=== PATIENT | female | born 1985 | race Caucasian/White ===

== ENCOUNTER 2021-12-14 10:04 | Outpatient (REF) | payer OTHER, SELFPAY ==
--- NOTE | ~2021-12-14 | XR_ITS ---
EXAMINATION: XR SINUSES CLINICAL INFORMATION: Chronic sinus pressure COMPARISON: None TECHNIQUE: 3 views of the sinuses were obtained. FINDINGS: Paranasal sinuses appear clear without air-fluid levels. No fractures are identified. No radiodense foreign bodies. XR/XR sinus min 3V IMPRESSION: Unremarkable sinus examination.
== END 2021-12-14 10:05 | disposition home or self-care (01) ==
LOC: HO.XRAY 10:04
PROVIDERS: PCP Internal Medicine; Visit Provider Otolaryngology
DX: J32.9 Chronic sinusitis, unspecified (principal)
CPT/HCPCS: 70220

== ENCOUNTER 2022-02-18 07:24 | Outpatient (REF) | payer OTHER, SELFPAY ==
[2022-02-18 07:40] LABS: MANUAL DIFF FLAG NO
[2022-02-18 08:21] LABS: Basophils Percent Auto 0.4 % (0-2); Eosinophils Absolute Auto 0.2 X10*3/uL (0.0-0.4); Eosinophils Percent Auto 1.8 % (0-4); Hematocrit 39.3 % (37.0-47.0); Imm Gran Abs Auto 0.01 X10*3/uL (0.00-0.03); Imm Gran Pct Auto 0.1 % (0.0-0.4); Lymphocytes Percent Auto 24.8 % (20-40); Mean Corpuscular HGB Conc 33.1 g/dl (31.0-35.0); Mean Corpuscular Volume 84.5 fL (80.0-98.0); Mean Platelet Volume 9.9 fL (9.4-12.3); Monocytes Absolute Auto 0.8 X10*3/uL (0.1-1.2); Monocytes Percent Auto 10.1 % (2-11); Neutrophils Absolute Auto 5.1 x10*3/uL (2.0-8.3); Neutrophils Percent Auto 62.8 % (45-73); Platelet Count 350 X10*3/uL (160-400); Red Blood Count 4.65 X10*6/uL (4.20-5.50); Red Cell Distribution Width 13.5 % (11.0-16.0); White Blood Count 8.2 X10*3/uL (4.8-10.8)
[2022-02-18 08:32] LABS: Alanine Aminotransferase 12 U/L (0-31); Albumin Level 4.2 g/dL (3.5-5.0); Alkaline Phosphatase 53 U/L (39-117); Anion Gap 13 (12-20); Aspartate Amino Transferase 13 U/L (5-31); Bilirubin Total 0.3 mg/dL (0.0-1.0); Blood Urea Nitrogen 12 mg/dL (9-16); Carbon Dioxide 23 mmol/L (22-29); Chloride 108 mmol/L (96-108); Cholesterol 200 mg/dL; Estimated Glomerular Filt Rate > 60; Glucose Fasting 110 mg/dL (60-99); HDL Cholesterol 44 mg/dL; LDL Cholesterol Calculated 130 mg/dl; Potassium 4.4 mmol/L (3.3-5.1); Sodium 140 mmol/L (135-145); TSH reflex Free T4 1.22 uIU/mL (0.32-4.0); Total Protein 7.1 g/dL (6.5-8.0); Triglycerides 133 mg/dL; Vitamin D 25-OH Total 27.4 ng/mL (>30)
[2022-02-18 08:50] LABS: Folate > 20.0 ng/mL (> or = 4.0); Vitamin B12 736 pg/mL (200-900)
== END 2022-02-18 07:25 | disposition home or self-care (01) ==
LOC: HO.LAB 07:24
PROVIDERS: PCP Internal Medicine; Visit Provider Nurse Practitioner Family
DX: Z76.89 Persons encountering health services in other specified circumstances (principal)
CPT/HCPCS: 36415; 80053; 80061; 82306; 82607; 82746; 84443; 85025

== ENCOUNTER 2022-03-01 10:46 | Outpatient (REF) | payer OTHER, SELFPAY ==
[2022-03-01 12:15] LABS: Estimated Average Glucose 100 mg/dL; Hemoglobin A1c % 5.1 %
== END 2022-03-01 10:47 | disposition home or self-care (01) ==
LOC: HO.LAB 10:46
PROVIDERS: PCP Internal Medicine; Visit Provider Nurse Practitioner Family
DX: R73.01 Impaired fasting glucose (principal)
CPT/HCPCS: 36415; 83036

== ENCOUNTER 2022-06-12 09:11 | Outpatient (REF) | payer OTHER, SELFPAY ==
[2022-06-14 01:10] LABS: HPV mRNA E6/E7 rflx Not Detected (Not Detected)
== END 2022-06-12 09:12 | disposition home or self-care (01) ==
LOC: HO.LNP 09:11
PROVIDERS: PCP Internal Medicine; Visit Provider Advanced Practice Midwife
DX: Z01.419 Encounter for gynecological examination (general) (routine) without abnormal findings (principal); Z11.51 Encounter for screening for human papillomavirus (HPV)
CPT/HCPCS: 87624; 88142

== ENCOUNTER → 2022-09-05 14:32 | Outpatient (BNVA) | payer OTHER, SELFPAY | PROVIDERS: PCP Internal Medicine; Visit Provider Nurse Practitioner Family ==

== ENCOUNTER → 2022-10-12 07:00 | Outpatient (REF) | payer OTHER, SELFPAY | LOC: HO.SL 07:00 | PROVIDERS: PCP Internal Medicine; Visit Provider Nurse Practitioner Family | DX: G47.9 Sleep disorder, unspecified (principal); G47.19 Other hypersomnia; R06.83 Snoring | CPT/HCPCS: 95806 ==

== ENCOUNTER 2022-10-12 07:10 | Outpatient (REF) | payer OTHER, SELFPAY | END 2022-10-12 07:11 | disposition home or self-care (01) | LOC: HO.MRI 07:10 | PROVIDERS: PCP Internal Medicine; Visit Provider Nurse Practitioner Family | DX: G43.109 Migraine with aura, not intractable, without status migrainosus (principal); H91.90 Unspecified hearing loss, unspecified ear; J32.9 Chronic sinusitis, unspecified; R55 Syncope and collapse | CPT/HCPCS: 70553; A9585 ==

== ENCOUNTER → 2022-10-12 15:08 | Outpatient (BNV) | payer OTHER, SELFPAY | PROVIDERS: PCP Internal Medicine; Visit Provider Psychiatry & Neurology Neurology | DX: R06.83 Snoring (principal) | CPT/HCPCS: 95806 ==

== ENCOUNTER 2022-12-18 13:12 | Outpatient (AMB) | payer OTHER, SELFPAY ==
[2022-12-18 13:29] VITALS: BP 120/88; PULSE 90; O2SAT 99; BMI 32.0
--- NOTE | 2022-12-18 13:29 | A.OFFVIS_ITS ---
Intake Vital Signs 12/18/22 13:29 Height 5 ft 2 in Weight 175 lb BMI 32.0 BP 120/88 Blood Pressure Location Rt brachial Position Sitting Pulse 90 Pulse Source Pulse Oximeter Pulse Oximetry (%) 99 Oxygen Delivery Method Room Air Intake Visit Reasons: Migraines Intake Note: Patient presents for migraines. patient states I haven't had as many migraines, But i do get headaches. Allergies Seasonal Allergies Allergy (Intermediate, Verified 12/18/22 13:33) Itching Medication List - Last Reconciled 12/18/22 by KARY Delatorre cholecalciferol (vitamin D3) 25 mcg PO DAILY loratadine-pseudoephedrine 10-240 mg ER (Claritin-D 24 Hour) 1 tab PO DAILY magnesium oxide 400 mg PO BEDTIME 30 days multivitamin 1 tab PO DAILY riboflavin (vitamin B2) 400 mg PO DAILY 30 days sumatriptan succinate 50 - 100 mg orally at onset of headache, may repeat in 2 hrs PRN; max 2 tabs per day or 4 tabs/week (may take with Ibuprofen) 30 days HPI HPI Comments History of Present Illness Details 37-yr-old female presents for f/u visit. Pt denies any significant interval medical changes. Pt reports that she has not had as many actual migraines since the last few months- 4-5 in the last 4 months. She has had more mild-mod sinus type headaches- especially triggered by weather changes. She is taking B2 and Mag- seems She has not tried the Sumatriptan yet- has not had a more bothersome headache when at home. Pt continues to have excessive daytime sleepiness. Brain MRI was normal. HST was inconclusive w/ AHI 0.2/hr and O2 zaria 84%. REPLACED BY [facility] Medical History (Updated 09/05/22 @ 21:35 by KARY Delatorre) Syncope Chronic sinusitis Hearing loss Snoring Sleep disorder Surgical History History of appendectomy Family History Mother Arthritis Osteoporosis Father Bladder cancer Myocardial infarction Social History Housing: House Alcohol intake: never Patient Tobacco Use Status: Never used Tobacco service: No Current occupational status: employed Cognitive needs: No Hearing needs: No Vision needs: Yes Female Reproductive History Menstrual Age of Menarche: 12 Review of Systems Const All systems reviewed & are unremarkable except as noted in HPI and below Physical Exam Vital Signs: Last Vital Signs Pulse 90 12/18/22 13:29 BP 120/88 12/18/22 13:29 Pulse Ox 99 12/18/22 13:29 Oxygen Delivery Method Room Air 12/18/22 13:29 BMI result Body Mass Index 32.0 Const General: cooperative and no acute distress Orientation/consciousness: patient oriented x3 HEENT Head: Yes normocephalic Resp Effort & Inspection: normal respiratory effort and able to speak in complete sentences Neuro General: patient oriented x3, gait normal and CN's II-XI intact bilaterally Cognition (Neuro): normal cognition Motor exam (neuro): 5/5 motor strength present throughout Psych Appearance: grossly normal Mental Status: mental status grossly normal Speech and movement: Normal speech and movement present Affect: normal affect Attitude: cooperative Thought process: Normal thought process present Thought content: Normal thought content present Insight: Good insight present (Psych) Judgement: Good judgement present (Psych) Assessment & Plan Assessment & Plan (1) Migraine with aura: Code(s): G43.109 - Migraine with aura, not intractable, without status migrainosus (2) Excessive daytime sleepiness: Code(s): G47.19 - Other hypersomnia (3) Sleep disorder: Code(s): G47.9 - Sleep disorder, unspecified (4) Snoring: Code(s): R06.83 - Snoring Plan Reviewed HST- inconclusive. Pt advised to undergo PSG/MSLT- to assess for hypersomnia/narcolepsy. Reviewed brain MRI w/wo- normal ? For acute headache treatment: Again trial Sumatriptan 100mg tab, 1/2 - 1 tab (50-100mg) at onset of headache, may repeat in 2 hours. Max of 2 tabs (200mg) per 24 hours. May adjunct with OTC Tylenol 650mg q 4 hours, Ibuprofen 600mg q 6 hours, or Naproxen 440mg q 12 hrs prn. May try Sumatriptan for sinus headaches as well. Previous acute migraine medication trials: OTC analgesics Acute migraine medication contraindications: None at this time ? For headache prevention medication: Continue Riboflavin 400mg qam Continue Magnesium 400mg qhs Previous migraine prevention medication trials: None Migraine prevention medication contraindications: None at this time ? Pt to follow-up in 3-4 months or sooner prn. Orders: Orders RT sleep testing - MSLT Today G47.19 - Other hypersomnia, G47.9 - Sleep disorder, unspecified, R06.83 - Snoring Coding Level of Care Code Est Pt Level 4 (51856) Diagnoses Migraine with aura G43.109 Excessive daytime sleepiness G47.19 Sleep disorder G47.9 Snoring R06.83
== END 2022-12-18 14:06 | disposition home or self-care (01) ==
PROVIDERS: Visit Provider Nurse Practitioner Family
DX: G43.109 Migraine with aura, not intractable, without status migrainosus (principal); G47.19 Other hypersomnia; G47.9 Sleep disorder, unspecified; R06.83 Snoring
CPT/HCPCS: 99214

== ENCOUNTER → 2022-12-18 13:12 | Outpatient (BNVA) | payer OTHER, SELFPAY | PROVIDERS: Visit Provider Nurse Practitioner Family ==

== ENCOUNTER 2023-02-23 15:44 | Outpatient (AMB) | payer OTHER, SELFPAY ==
[2023-02-23 15:45] VITALS: BP 108/70; PULSE 105; O2SAT 98; BMI 31.1
--- NOTE | 2023-02-23 15:45 | MHC.PC.OV ---
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 Allergies Seasonal Allergies Allergy (Intermediate, Verified 02/23/23 16:07) Itching Medication List - Last Reconciled 02/23/23 by KARY Sanchez cholecalciferol (vitamin D3) 25 mcg PO DAILY loratadine-pseudoephedrine 10-240 mg ER (Claritin-D 24 Hour) 1 tab PO DAILY magnesium oxide 400 mg PO BEDTIME 30 days multivitamin 1 tab PO DAILY riboflavin (vitamin B2) 400 mg PO DAILY 30 days sumatriptan succinate 50 - 100 mg orally at onset of headache, may repeat in 2 hrs PRN; max 2 tabs per day or 4 tabs/week (may take with Ibuprofen) 30 days Tobacco use date assessed: 02/23/23 Dental Screening Dental Screen Date: 02/23/23 Did you have a dental visit in the last 12 months?: No Did you have a dental problem in the last 6 months where you did not have access to dental care?: No Was dental information given to patient?: Patient has dentist HPI physical HPI Details Patient is a 37-year-old female who presents today for physical exam. Medical history significant for seasonal allergies-followed by Dr. Beckford-receiving injections, obesity, elevated fasting glucose, migraine with aura-followed by [place] [facility]. Today we discussed patient's need for tetanus vaccine. Pap smear normal 06/2022 with [place] [facility]. Patient denies concerns. [facility] Medical History Encounter to establish care Syncope Chronic sinusitis Hearing loss Snoring Sleep disorder Surgical History History of appendectomy Family History Mother Arthritis Osteoporosis Father Bladder cancer Myocardial infarction Social History Housing: House Alcohol intake: never Patient Tobacco Use Status: Never used Tobacco service: No Current occupational status: employed Cognitive needs: No Hearing needs: No Vision needs: Yes Female Reproductive History Menstrual Age of Menarche: 12 Questionnaire PHQ-9 Over the last 2 weeks, how often have you been bothered by any of the following problems? 1. Little interest or pleasure in doing things: not at all 2. Feeling down, depressed, or hopeless: not at all 3. Trouble falling or staying asleep, or sleeping too much: not at all 4. Feeling tired or having little energy: not at all 5. Poor appetite or overeating: not at all 6. Feeling bad about yourself - or that you are a failure or have let yourself or your family down: not at all 7. Trouble concentrating on things, such as reading the newspaper or watching television: not at all 8. Moving or speaking so slowly that other people could have noticed. Or the opposite - being so fidgety or restless that you have been moving around a lot more than usual: not at all 9. Thoughts that you would be better off or of hurting yourself in some way: not at all Total score: 0 Depression Screening Interpretation: Negative Depression Screening Done: Yes 51281 - PHQ-9 Billing: Yes Source: Developed by Drs. Gian Downs, Michelle Griggs, Jalen Taylor and colleagues, with an educational mark from [employer]. Thrive Questionnaire Date Thrive assessed: 02/23/23 I am a: Patient What is your living situation today?: I have a steady place to live Within the past 12 months, did the food you bought not last and you didn't have the money to get more?: Never true Within the past 12 months, did you worry whether your food would run out before you got money to buy more?: Never true Do you have trouble paying for medicines?: No Do you have trouble getting transportation to medical appointments?: No Do you have trouble paying your heating and electricity bill?: No Do you have trouble taking care of your child, family member or friend?: No Do you have trouble with day-to-day activities such as bathing, preparing meals, shopping, managing finances, etc.?: No Are you currently unemployed and looking for a job?: No Are you interested in more education?: No Currently or been in a relationship where the following occur: no concerns reported AUDIT C Alcohol Use Questionnaire (AUDIT-C) 1. How often do you have a drink containing alcohol?: Never 2. How many drinks containing alcohol do you have on a typical day when you are drinking?: 1 or 2 (0) 3. How often do you have six or more drinks on one occasion?: Never Total Score: 0 Score Reviewed/Action Taken: No KATERINA-7 AMB Questionnaire KATERINA-7 Date KATERINA - 7 assessed: 02/23/23 Feeling nervous, anxious, or on edge: 0 = Not at all Not being able to stop or control worryin = Not at all Worrying too much about different things: 0 = Not at all Trouble relaxin = Not at all Being so restless that it is hard to sit still: 0 = Not at all Becoming easily annoyed or irritable: 0 = Not at all Feeling afraid as if something awful might happen: 0 = Not at all Total KATERINA-7 score (0-4 normal; 5-9 mild; 10-14 moderate; 15-21 severe): 0 Source: Developed by Drs. Gian Downs, Michelle Griggs, Jalen Taylor and colleagues, with an educational mark from [employer]. KATERINA-7 Assessment Billing KATERINA-7 Assessment Tool: KATERINA-7 Assessment 72199 Review of Systems Const Denies body aches, Denies chills, Denies fever(s) and Reports headache(s) (Intermittent) Eyes Denies change in vision ENT Denies dizziness, Denies otalgia, Reports headache(s) (Intermittent), Denies nasal discharge, Denies sinus pain and Denies sore throat Card Denies chest pain, Denies edema, Denies lightheadedness and Denies dyspnea Resp Denies cough, Denies dyspnea and Denies wheezing GI Denies abdominal pain, Denies constipation, Denies diarrhea, Denies nausea and Denies vomiting Denies dysuria Musc Denies myalgias Skin/Breast Denies rash Neuro Denies dizziness and Reports headache(s) (Intermittent) Aller/Immun Denies wheezing Physical exam (Primary Care) Vital Signs: Last Vital Signs Pulse 94 02/23/23 16:17 BP 108/70 02/23/23 15:45 Pulse Ox 98 11/17/23 15:45 Oxygen Delivery Method Room Air 02/23/23 15:45 BMI result Body Mass Index 31.1 Tobacco/Smoking Status: Tobacco use Status Tobacco use date assessed 02/23/23 02/23/23 15:46 Patient Tobacco Use Status Never used Tobacco 02/23/23 15:46 PHQ-9: PHQ-9 Score PHQ-9: Total score 0 02/23/23 16:23 Depression Screening Interpretation: Negative Thrive Assessment: Date of Thrive Assessment Date Thrive assessed 02/23/23 02/23/23 15:46 Currently or been in a relationship where the following occur: no concerns reported Const General: cooperative and no acute distress Orientation/consciousness: patient oriented x3 HENMT Head: Yes normocephalic and Yes atraumatic Ears: TM's normal bilaterally Face and sinus: Yes sinuses nontender Mouth: oropharynx normal and moist mucous membranes Throat: Yes posterior oropharynx normal Eyes General: appearance normal, both eyes and all related structures Pupils: Equal, round and reactive pupils present EOM: EOMs intact bilaterally Neck Neck: Yes normal visual inspection, Yes full ROM and Yes no lymphadenopathy Thyroid: Thyroid normal Resp Effort & Inspection: normal respiratory effort and able to speak in complete sentences Auscultation: clear to auscultation bilaterally, no crackles, no rales, no rhonchi and no wheezes Cardio Rate: regular rate Rhythm: regular rhythm Heart sounds: S1 normal heart sound present, S2 normal heart sound present and no murmurs GI Palpation (GI): Soft to palpation, not firm, nontender, no guarding, not rigid and no hepatosplenomegaly Auscultation: normal bowel sounds General: No CVA tenderness Back/Spine/Pelvis Back: No CVA tenderness Skin General skin exam: no rashes or lesions noted Neuro General: patient oriented x3 Cranial nerves: Yes Equal, round and reactive pupils present Gait exam (Neuro): Normal gait present Extrem General: Yes full ROM and No edema Immunizations Boostrix Tdap 2.5 Lf unit-8 mcg-5 Lf/0.5 mL intramuscular syringe Performing Provider: KARY Sanchez Performing Location: [facility] [place] [facility] Administered by: ALESSANDRO Jewell on 02/23/23 16:23 Dose Route Admin Location Dispensed Lot Number Expiration Date NDC Cell Preparer 0.5 mL IM Left Deltoid 0.5 mL [id number] 05/08/25 [id number] [facility] [facility] VIS Given Date VIS Provided VIS Publication Date 02/23/23 Single Vaccine 20 Eligibility Eligibility Date Funding Source Not VFC Eligible 02/23/23 Private Assessment and Plan Assessment & Plan (1) Seasonal allergies: Code(s): J30.2 - Other seasonal allergic rhinitis Plan: Continue to follow-up with Dr. Beckford - patient has been receiving allergy shots (2) Obesity (BMI 30-39.9): Code(s): E66.9 - Obesity, unspecified Plan: Healthy food choices and exercise as tolerated (3) Adult general medical exam: Code(s): Z00.00 - Encounter for general adult medical examination without abnormal findings (4) Migraine with aura: Code(s): G43.109 - Migraine with aura, not intractable, without status migrainosus Plan: Stable with current treatment as prescribed by Neurology (5) Elevated fasting glucose: Code(s): R73.01 - Impaired fasting glucose Plan: A1c ordered Orders: Orders TSH reflex Free T4 Today G43.109 - Migraine with aura, not intractable, without status migrainosus Lipid Panel Today G43.109 - Migraine with aura, not intractable, without status migrainosus Comprehensive [place]. Panel Fast Today G43.109 - Migraine with aura, not intractable, without status migrainosus Complete Blood Count Auto Diff Today G43.109 - Migraine with aura, not intractable, without status migrainosus TDaP Immunization 02/23/23 Z23 - Encounter for immunization Vitamin D 25-OH Total Today G43.109 - Migraine with aura, not intractable, without status migrainosus Hemoglobin A1c Today R73.01 - Impaired fasting glucose Coding Level of Care Code Est Pt Prev Care 18-39y(33981) Diagnoses Seasonal allergies J30.2 Obesity (BMI 30-39.9) E66.9 Adult general medical exam Z00.00 Migraine with aura G43.109 Elevated fasting glucose R73.01 Additional Codes KATERINA-7 Assessment Billing - KATERINA-7 Assessment Tool: KATERINA-7 Assessment [id number] ([id number])
[2023-02-23 16:17] VITALS: PULSE 94
== END 2023-02-23 16:24 | disposition home or self-care (01) ==
PROVIDERS: Visit Provider Nurse Practitioner Family
DX: Z23 Encounter for immunization (principal)
CPT/HCPCS: 90471; 90715; 99395

== ENCOUNTER 2023-02-24 07:28 | Outpatient (REF) | payer OTHER, SELFPAY ==
[2023-02-24 07:43] LABS: MANUAL DIFF FLAG NO
[2023-02-24 08:24] LABS: Basophils Percent Auto 0.3 % (0-2); Eosinophils Absolute Auto 0.1 X10*3/uL (0.0-0.4); Eosinophils Percent Auto 1.1 % (0-4); Hemoglobin 12.8 g/dl (12.0-16.0); Imm Gran Abs Auto 0.03 X10*3/uL (0.00-0.03); Imm Gran Pct Auto 0.3 % (0.0-0.4); Lymphocytes Absolute Auto 2.1 X10*3/uL (1.2-4.9); Lymphocytes Percent Auto 23.1 % (20-40); Mean Corpuscular HGB Conc 32.8 g/dl (31.0-35.0); Mean Corpuscular Hemoglobin 27.4 pg (27.0-33.0); Mean Corpuscular Volume 83.3 fL (80.0-98.0); Mean Platelet Volume 9.8 fL (9.4-12.3); Monocytes Absolute Auto 0.9 X10*3/uL (0.1-1.2); Neutrophils Absolute Auto 5.9 x10*3/uL (2.0-8.3); Neutrophils Percent Auto 65.2 % (45-73); Platelet Count 338 X10*3/uL (160-400); Red Blood Count 4.68 X10*6/uL (4.20-5.50); Red Cell Distribution Width 13.5 % (11.0-16.0); White Blood Count 9.1 X10*3/uL (4.8-10.8)
[2023-02-24 08:38] LABS: Estimated Average Glucose 100 mg/dL; Hemoglobin A1c % 5.1 % (<6.0)
[2023-02-24 08:57] LABS: Alanine Aminotransferase 10 U/L (0-31); Albumin Level 4.3 g/dL (3.5-5.0); Alkaline Phosphatase 48 U/L (39-117); Anion Gap 12 (12-20); Aspartate Amino Transferase 11 U/L (5-31); Bilirubin Total 0.4 mg/dL (0.0-1.0); Blood Urea Nitrogen 11 mg/dL (9-16); Calcium 9.3 mg/dL (8.4-10.2); Carbon Dioxide 23 mmol/L (22-29); Chloride 107 mmol/L (96-108); Cholesterol 208 mg/dL (<200); Estimated Glomerular Filt Rate > 60; Glucose Fasting 101 mg/dL (60-99); HDL Cholesterol 47 mg/dL (>40); LDL Cholesterol Calculated 137 mg/dL (<100); Potassium 4.2 mmol/L (3.3-5.1); Sodium 138 mmol/L (135-145); Total Protein 7.5 g/dL (6.5-8.0); Triglycerides 123 mg/dL (<150)
[2023-02-24 09:16] LABS: TSH reflex Free T4 0.45 uIU/mL (0.32-4.0); Vitamin D 25-OH Total 38.3 ng/mL (>30)
== END 2023-02-24 07:29 | disposition home or self-care (01) ==
LOC: HO.LAB 07:28
PROVIDERS: PCP Internal Medicine; Visit Provider Nurse Practitioner Family
DX: G43.109 Migraine with aura, not intractable, without status migrainosus (principal); R73.01 Impaired fasting glucose; E55.9 Vitamin D deficiency, unspecified
CPT/HCPCS: 36415; 80053; 80061; 82306; 83036; 84443; 85025

== ENCOUNTER 2023-05-14 14:25 | Outpatient (AMB) | payer OTHER, SELFPAY ==
--- NOTE | 2023-05-14 14:28 | MHC.OFFVIS ---
Intake Vital Signs 05/14/23 14:30 Height 5 ft 4 in Weight 174 lb BMI 29.9 BP 108/90 H Blood Pressure Location Rt brachial Position Sitting Pulse 92 Pulse Source Pulse Oximeter Pulse Oximetry (%) 98 Oxygen Delivery Method Room Air Intake Visit Reasons: Migraines-Confirmed Intake Note: Patient presents for migraines. my headaches are probably a little less and not quite as many. Allergies Seasonal Allergies Allergy (Intermediate, Verified 05/14/23 14:31) Itching HPI HPI Comments History of Present Illness Details 38-yr-old female presents for f/u visit. Pt denies any significant interval medical changes. 03/16/23: In-lab PSG results- did not show sleep apnea: AHI 2/hr, average SpO2 93% w/ O2 zaria 89%, sleep efficiency 82%, REM sleep latency 216 min, PLMS 24/hr, PLMS arousal index 9/hr. MSLT results were c/w hypersomnia- average nap onset time 5 min, but no REM activity. 02/2022 Vit B12- 736, Folate- > 20 02/2023 TSH 0.38 02/2023 H&H 12.8 & 39 02/2023 HgA1C 5.1% Describes her daytime sleepiness, as feeling tired. She is prone to unintentionally falling asleep on the couch in the evening at home. Does not fall asleep at work. She has never fallen asleep w/ driving. Sleeps approx 6-7 hrs per night. Headaches are a little bit better. Now mild headache or sinus/allergy headache 2-3 x's per week- tends to be at the end of the work day. Works in finance- on computer all day- not using blue light filtering devices. Has been compliant w/ B2 and Mag. Has not yet tried Sumatriptan- Baseline headache characteristics: Aura: Starts with not seeing right, poor focus- like double vision but not, f/b seeing little squiggles. This lasts 20 min, and may or may not be f/ a headache, but usually f/b being more tired. Usually mild-mod, rarely severe Holocranial (may start as frontal facial pressure) or sometime the headaches start in the back of the head and moves up. a/w photophobia, allodynia, nausea, mild brain fog, tiredness, PFSH Medical History Encounter to establish care Syncope Chronic sinusitis Hearing loss Snoring Sleep disorder Surgical History History of appendectomy Family History Mother Arthritis Osteoporosis Father Bladder cancer Myocardial infarction Social History Housing: House Alcohol intake: never Patient Tobacco Use Status: Never used Tobacco service: No Current occupational status: employed Cognitive needs: No Hearing needs: No Vision needs: Yes Female Reproductive History Menstrual Age of Menarche: 12 Physical Exam Vital Signs: Last Vital Signs Pulse 92 05/14/23 14:30 BP 108/90 H 05/14/23 14:30 Pulse Ox 98 05/14/23 14:30 Oxygen Delivery Method Room Air 05/14/23 14:30 BMI result Body Mass Index 29.9 Const General: cooperative and no acute distress Orientation/consciousness: patient oriented x3 Resp Effort & Inspection: normal respiratory effort and able to speak in complete sentences Neuro General: patient oriented x3 Cranial nerves: Yes CN's II-XII intact bilaterally Cognition (Neuro): normal cognition Psych Appearance: grossly normal Mental Status: mental status grossly normal Speech and movement: Normal speech and movement present Affect: normal affect Attitude: cooperative Assessment & Plan Assessment & Plan (1) Migraine with aura: Code(s): G43.109 - Migraine with aura, not intractable, without status migrainosus (2) Hypersomnia: Code(s): G47.10 - Hypersomnia, unspecified (3) Periodic limb movements of sleep: Code(s): G47.61 - Periodic limb movement disorder (4) Ocular migraine: Code(s): G43.109 - Migraine with aura, not intractable, without status migrainosus Plan Reviewed PSG/MSLT- no evidence for sleep apnea, there was a PLMS arousal index of 9/hr, MSLT resulted in average nap onset time 5 min, but no REM activity. Recent CBC, CMP, HgA1C, B-12, Folate, TSH- WNL. Encourgaed pt to increase nocturnal sleep time, try to avoid evening naps. Sleep hygiene, CBTi resources shared w/ pt. Future considerations- gabapentin or dopamine agonist for PLMS, or stimulnat agent- such as modafinil. For acute headache treatment: Sumatriptan 100mg tab, 1/2 - 1 tab (50-100mg) at onset of headache, may repeat in 2 hours. Max of 2 tabs (200mg) per 24 hours. May adjunct with OTC Tylenol 650mg q 4 hours, Ibuprofen 600mg q 6 hours, or Naproxen 440mg q 12 hrs prn. May try Sumatriptan for sinus headaches as well. Previous acute migraine medication trials: OTC analgesics Acute migraine medication contraindications: None at this time ? For headache prevention medication: Try using blue light filtering devices while at work. Continue Riboflavin 400mg qam Continue Magnesium 400mg qhs Previous migraine prevention medication trials: None Migraine prevention medication contraindications: None at this time ? Pt to follow-up in 6 months or sooner prn. Coding Level of Care Code Est Pt Level 4 (59669) Diagnoses Migraine with aura G43.109 Hypersomnia G47.10 Periodic limb movements of sleep G47.61 Ocular migraine G43.109
[2023-05-14 14:30] VITALS: BP 108/90; PULSE 92; O2SAT 98; BMI 29.9
== END 2023-05-14 15:10 | disposition home or self-care (01) ==
PROVIDERS: PCP Internal Medicine; Visit Provider Nurse Practitioner Family
DX: G43.109 Migraine with aura, not intractable, without status migrainosus (principal); G47.10 Hypersomnia, unspecified; G47.61 Periodic limb movement disorder
CPT/HCPCS: 99214

== ENCOUNTER → 2023-05-14 14:25 | Outpatient (BNVA) | payer OTHER, SELFPAY | PROVIDERS: PCP Internal Medicine; Visit Provider Nurse Practitioner Family ==

== ENCOUNTER 2023-12-31 09:25 | Outpatient (AMB) | payer BC, SELFPAY ==
[2023-12-31 09:47] VITALS: BP 122/84; BMI 30.4
--- NOTE | 2023-12-31 09:47 | MHC.OFFVIS ---
Vital Signs 12/31/23 09:47 Height 5 ft 4 in Weight 177 lb BMI 30.4 BP 122/84 Blood Pressure Location Rt brachial Position Sitting Intake Visit Reasons: Migraines-Confirme Intake Note: Patient presents for follow up migraines. Allergies Seasonal Allergies Allergy (Intermediate, Verified 12/31/23 09:48) Itching Medication List - Last Reconciled 12/31/23 by KARY Delatorre cholecalciferol (vitamin D3) 25 mcg PO DAILY gabapentin 100 - 300 mg (1 - 3 x 100 mg) PO BEDTIME 30 days loratadine-pseudoephedrine 10-240 mg ER (Claritin-D 24 Hour) 1 tab PO DAILY magnesium oxide 400 mg PO BEDTIME 30 days multivitamin 1 tab PO DAILY riboflavin (vitamin B2) 400 mg PO DAILY 30 days sumatriptan succinate 50 - 100 mg orally at onset of headache, may repeat in 2 hrs PRN; max 2 tabs per day or 4 tabs/week (may take with Ibuprofen) 30 days HPI Comments Details: 38-yr-old female presents for f/u visit. Pt denies any significant interval medical changes. Pt states she is overall stable. Pt notes she is still working on optimizing her evening and sleep routine. Currently taking classes in [employer]. After work, she eats dinner and may take a short break, then does school work, house work, exercise until 11pm. She is trying to avoid sitting on the couch after her evening routine- which can end at ~11pm, as she will fall asleep on the couch. She is trying to be better about taking evening meds as well- such as Gabapentin. Describes her daytime sleepiness, as feeling tired. She is still prone to unintentionally falling asleep when inactive but typically only when in a comfortable space such as home. Does not fall asleep at work. She has never fallen asleep w/ driving. Sleeps approx 6-7 hrs per night. Headaches are a little bit better. Now mild headache or sinus/allergy headache 2-3 x's per week- tends to be at the end of the work day. Having 1-2 migarine attacks per month. Works in finance- on computer all day- not using blue light filtering devices. Has been compliant w/ B2 and Mag. Has not yet tried Sumatriptan. Baseline headache characteristics: Aura: Starts with not seeing right, poor focus- like double vision but not, f/b seeing little squiggles. This lasts 20 min, and may or may not be f/ a headache, but usually f/b being more tired. Usually mild-mod, rarely severe Holocranial (may start as frontal facial pressure) or sometime the headaches start in the back of the head and moves up. a/w photophobia, allodynia, nausea, mild brain fog, tiredness, 03/16/23:In-lab PSG results- did not show sleep apnea: AHI 2/hr, average SpO2 93% w/ O2 zaria 89%, sleep efficiency 82%, REM sleep latency 216 min, PLMS 24/hr, PLMS arousal index 9/hr. MSLT results were c/w hypersomnia- average nap onset time 5 min, but no REM activity. 02/2022 Vit B12- 736, Folate- > 20 02/2023 TSH 0.38 02/2023 H&H 12.8 & 39 02/2023 HgA1C 5.1% PFSH Medical History Encounter to establish care Syncope Chronic sinusitis Hearing loss Snoring Sleep disorder Surgical History History of appendectomy Family History Mother Arthritis Osteoporosis Father Bladder cancer Myocardial infarction Social History Housing: House Alcohol intake: never Patient Tobacco Use Status: Never used Tobacco service: No Current occupational status: employed Cognitive needs: No Hearing needs: No Vision needs: Yes Female Reproductive History Menstrual Age of Menarche: 12 Physical Exam Vital Signs: Last Vital Signs BP 122/84 12/31/23 09:47 BMI result Body Mass Index 30.4 Const General: cooperative and no acute distress Orientation/consciousness: patient oriented x3 Resp Effort & Inspection: normal respiratory effort and able to speak in complete sentences Neuro General: patient oriented x3 Cranial nerves: Yes CN's II-XII intact bilaterally Cognition (Neuro): normal cognition Psych Appearance: grossly normal Mental Status: mental status grossly normal Speech and movement: Normal speech and movement present Affect: normal affect Attitude: cooperative Assessment & Plan Assessment & Plan (1) Hypersomnia: Code(s): G47.10 - Hypersomnia, unspecified Category: Medical (2) Periodic limb movements of sleep: Code(s): G47.61 - Periodic limb movement disorder Category: Medical (3) Migraine with aura: Code(s): G43.109 - Migraine with aura, not intractable, without status migrainosus Category: Medical Plan Gabapentin 100-300mg qhs for PLMS. Encouraged pt to increase nocturnal sleep time, try to avoid evening naps. Sleep hygiene strategies/tips shared w/ pt- ie setting bedtime reminder in phone. Future considerations- Stimulant agent- such as modafinil. ? For acute headache treatment: Again may try Sumatriptan 100mg tab, 1/2 - 1 tab (50-100mg) at onset of headache, may repeat in 2 hours. Max of 2 tabs (200mg) per 24 hours. May adjunct with OTC Tylenol 650mg q 4 hours, Ibuprofen 600mg q 6 hours, or Naproxen 440mg q 12 hrs prn. May try Sumatriptan for sinus headaches as well. Previous acute migraine medication trials: OTC analgesics Acute migraine medication contraindications: None at this time ? For headache prevention medication: Try using blue light filtering devices while at work. Continue Riboflavin 400mg qam Continue Magnesium 400mg qhs Previous migraine prevention medication trials: None Migraine prevention medication contraindications: None at this time ? Pt to follow-up in 12 months or sooner prn. Medications: Refilled sumatriptan succinate (0.5 - 1 x 100 mg) 50 - 100 mg orally at onset of headache, may repeat in 2 hrs PRN; max 2 tabs per day or 4 tabs/week (may take with Ibuprofen) 30 days 12 tabs 1RF migraine headache Coding Level of Care Code Est Pt Level 4 (10195) Diagnoses Hypersomnia G47.10 Periodic limb movements of sleep G47.61 Migraine with aura G43.109
== END 2023-12-31 10:47 | disposition home or self-care (01) ==
PROVIDERS: PCP Internal Medicine; Visit Provider Nurse Practitioner Family
DX: G47.10 Hypersomnia, unspecified (principal); G47.61 Periodic limb movement disorder; G43.109 Migraine with aura, not intractable, without status migrainosus
CPT/HCPCS: 99214

== ENCOUNTER → 2023-12-31 09:25 | Outpatient (BNVA) | payer BC, SELFPAY | PROVIDERS: PCP Internal Medicine; Visit Provider Nurse Practitioner Family ==

== ENCOUNTER 2024-02-28 17:16 | Outpatient (AMB) | payer BC, SELFPAY ==
--- NOTE | 2024-02-28 17:18 | MHC.PC.OV ---
Vital Signs 02/28/24 17:19 Height 5 ft 4 in Weight 176 lb BMI 30.2 BP 112/80 Blood Pressure Location Lt brachial Position Sitting Intake Visit Reasons: PE Intake Note: Patient here for a physical exam Crime Victim Specialist Required: No Accompanied by: Self / Same As Patient Allergies Seasonal Allergies Allergy (Intermediate, Verified 02/28/24 17:35) Itching Medication List - Last Reconciled 02/28/24 by Bette Herndon MD gabapentin 100 - 300 mg (1 - 3 x 100 mg) PO BEDTIME 30 days loratadine-pseudoephedrine 10-240 mg ER (Claritin-D 24 Hour) 1 tab PO DAILY magnesium oxide 400 mg PO BEDTIME 30 days multivitamin 1 tab PO DAILY sumatriptan succinate 50 - 100 mg orally at onset of headache, may repeat in 2 hrs PRN; max 2 tabs per day or 4 tabs/week (may take with Ibuprofen) 30 days Tobacco use date assessed: 02/28/24 Dental Screening Dental Screen Date: 02/28/24 Did you have a dental visit in the last 12 months?: Yes Did you have a dental problem in the last 6 months where you did not have access to dental care?: No Was dental information given to patient?: Patient has dentist HPI HPI Comments History of Present Illness Details The patient is a 38-year-old female presenting with an annual physical examination. The patient has a history of seasonal allergic rhinitis for which she receives weekly allergy shots under the care of Dr. Chapman. She also takes loratadine with pseudoephedrine as needed for her allergies. She has a history of restless legs syndrome, diagnosed after a sleep study conducted in March 2022, for which gabapentin was prescribed by her neurologist. Additionally, the patient has been experiencing migraines, which prompted her initial referral to the neurologist. She reports that magnesium supplementation has helped reduce the frequency of her migraines. She uses sumatriptan as needed for acute migraine attacks. The patient's cholesterol levels were found to be slightly elevated during her last blood work, but did not warrant pharmacological intervention. Weight was noted to have a BMI of 30, categorizing her under class 1 obesity. - Pap smear was performed in 2022 - Received Tdap vaccine in 2022 - Received the influenza vaccine a couple of weeks prior to the visit [facility], [facility] Medical History Encounter to establish care Syncope Chronic sinusitis Hearing loss Snoring Sleep disorder Surgical History History of appendectomy Family History Mother Arthritis Osteoporosis Father Bladder cancer Myocardial infarction Social History (Updated 02/28/24 @ 17:40 by Bette Herndon MD) Housing: House Alcohol intake: current Alcohol intake frequency: holidays/special occasions only Patient Tobacco Use Status: Never used Tobacco e-Cigarette/Vaping Use: Never Used Second Hand Smoke Exposure: No service: No Current occupational status: employed Cognitive needs: No Hearing needs: No Vision needs: Yes Female Reproductive History Menstrual Age of Menarche: 12 Questionnaire PHQ-9 Over the last 2 weeks, how often have you been bothered by any of the following problems? 1. Little interest or pleasure in doing things: not at all 2. Feeling down, depressed, or hopeless: not at all 3. Trouble falling or staying asleep, or sleeping too much: not at all 4. Feeling tired or having little energy: several days 5. Poor appetite or overeating: several days 6. Feeling bad about yourself - or that you are a failure or have let yourself or your family down: not at all 7. Trouble concentrating on things, such as reading the newspaper or watching television: not at all 8. Moving or speaking so slowly that other people could have noticed. Or the opposite - being so fidgety or restless that you have been moving around a lot more than usual: not at all 9. Thoughts that you would be better off or of hurting yourself in some way: not at all Total score: 2 Depression Screening Interpretation: Negative Depression Screening Done: Yes 30780 - PHQ-9 Billing: Yes Source: Developed by Drs. Gian Downs, Michelle Griggs, Jalen Taylor and colleagues, with an educational mark from [employer]. Thrive Questionnaire Date Thrive assessed: 02/28/24 I am a: Patient What is your living situation today?: I have a steady place to live Within the past 12 months, did the food you bought not last and you didn't have the money to get more?: Never true Within the past 12 months, did you worry whether your food would run out before you got money to buy more?: Never true Do you have trouble paying for medicines?: No Do you have trouble getting transportation to medical appointments?: No Do you have trouble paying your heating and electricity bill?: No Do you have trouble taking care of your child, family member or friend?: No Do you have trouble with day-to-day activities such as bathing, preparing meals, shopping, managing finances, etc.?: No Are you currently unemployed and looking for a job?: No Are you interested in more education?: No Please select the resources that you would like help with: None Currently or been in a relationship where the following occur: No concerns reported THRIVE Score: 0 AUDIT C Alcohol Use Questionnaire (AUDIT-C) 1. How often do you have a drink containing alcohol?: Monthly or less 2. How many drinks containing alcohol do you have on a typical day when you are drinking?: 1 or 2 3. How often do you have six or more drinks on one occasion?: Never Total Score: 1 Score Reviewed/Action Taken: No KATERINA-7 AMB Questionnaire KATERINA-7 Date KATERINA - 7 assessed: 02/28/24 Feeling nervous, anxious, or on edge: 0 = Not at all Not being able to stop or control worryin = Not at all Worrying too much about different things: 0 = Not at all Trouble relaxin = Not at all Being so restless that it is hard to sit still: 0 = Not at all Becoming easily annoyed or irritable: 0 = Not at all Feeling afraid as if something awful might happen: 0 = Not at all Total KATERINA-7 score (0-4 normal; 5-9 mild; 10-14 moderate; 15-21 severe): 0 Source: Developed by Drs. Gian Downs, Michelle Griggs, Jalen Taylor and colleagues, with an educational mark from [employer]. KATERINA-7 Assessment Billing KATERINA-7 Assessment Tool: KATERINA-7 Assessment 30455 Review of Systems Const All systems reviewed & are unremarkable except as noted in HPI and below Card Denies chest pain at rest, Denies chest pain with activity, Denies edema, Denies irregular heart rhythm, Denies claudication, Denies dyspnea, Denies dyspnea on exertion, Denies orthopnea, Denies paroxysmal nocturnal dyspnea and Denies slow heart rate Resp Denies cough, Denies dyspnea and Denies dyspnea on exertion GI Denies abdominal pain, Denies change in bowel habits, Denies excessive flatus, Denies nausea and Denies vomiting Skin/Breast Denies bleeding lesions, Denies changing lesions and Denies rash Neuro Denies behavioral changes and Denies lack of coordination Psych Denies behavioral changes Physical exam (Primary Care) Vital Signs: Last Vital Signs BP 112/80 02/28/24 17:19 BMI result Body Mass Index 30.2 BMI Assessment/Plan discussion: High BMI High, discussed plan: lifestyle, weight reduction, dietary and physical activity Tobacco/Smoking Status: Tobacco use Status Tobacco use date assessed 02/28/24 02/28/24 17:24 Patient Tobacco Use Status Never used Tobacco 02/28/24 17:24 e-Cigarette/Vaping Use Never Used 02/28/24 17:24 PHQ-9: PHQ-9 Score PHQ-9: Total score 2 02/28/24 17:24 Depression Screening Interpretation: Negative Thrive Assessment: Date of Thrive Assessment Date Thrive assessed 02/28/24 02/28/24 17:24 Currently or been in a relationship where the following occur: No concerns reported [facility] Head: Yes normal to inspection, Yes normocephalic and Yes atraumatic Ears: external ears normal Eyes General: appearance normal, both eyes and all related structures Eyelids: Yes eyelids normal Conjunctivae: conjunctivae normal Neck Neck: Yes normal visual inspection and Yes supple Resp Effort & Inspection: normal respiratory effort Auscultation: clear to auscultation bilaterally Cardio Jugular venous distension: no JVD Rate: regular rate Rhythm: regular rhythm Heart sounds: S1 normal heart sound present and S2 normal heart sound present GI Inspection: Yes normal to inspection Palpation (GI): Soft to palpation and nontender Auscultation: normal bowel sounds Skin General skin exam: no rashes or lesions noted Neuro General: no focal motor deficits Extrem General: Yes full ROM Psych Appearance: grossly normal Coding Level of Care Code Est Pt Prev Care 18-39y(47449) Diagnoses Adult general medical exam Z00.00 Additional Codes PHQ-9 - 44910 - PHQ-9 Billing: Yes ([id number]) KATERINA-7 Assessment Billing - KATERINA-7 Assessment Tool: KATERINA-7 Assessment 48514 ([id number]) Time Spent (min) 30 Assessment & Plan Assessment & Plan (1) Adult general medical exam: Code(s): Z00.00 - Encounter for general adult medical examination without abnormal findings Category: Medical Plan - Seasonal Allergic Rhinitis: Continue with weekly allergy shots and loratadine with pseudoephedrine as needed. - Restless Legs Syndrome: Continue gabapentin at bedtime. - Migraine: Continue magnesium at bedtime and sumatriptan as needed for acute migraine episodes. - Class 1 Obesity: Discussed weight management and the importance of lifestyle modifications. - Hyperlipidemia: Repeat fasting blood work to assess current cholesterol levels and adjust management as necessary. Patient was informed and verbally consented to the use of an ambient scribe for clinic note documentation during this visit. I discussed with the patient the importance of maintaining regular follow-ups for her allergy management and the continuation of her current medications for restless legs syndrome and migraines. We reviewed the potential benefits of maintaining a healthy weight and lifestyle choices for managing class 1 obesity. The necessity of monitoring cholesterol levels through fasting blood work was emphasized, with plans to reassess treatment based on the new results. We also reinforced the importance of continuing preventive care screenings such as Pap smears and vaccinations. Orders: Orders Vitamin D 25-OH Total Today E55.9 - Vitamin D deficiency, unspecified Comprehensive [place]. Panel Fast Today Z00.00 - Encounter for general adult medical examination without abnormal findings Lipid Panel Today E78.5 - Hyperlipidemia, unspecified, Z00.00 - Encounter for general adult medical examination without abnormal findings Patient Instructions: - Continue current allergy, restless legs syndrome, and migraine medications as prescribed. - Schedule and complete fasting blood work within the next three months. - Maintain healthy lifestyle choices to address weight management. - Regularly attend follow-up appointments for ongoing care and preventive health measures.
[2024-02-28 17:19] VITALS: BP 112/80; BMI 30.2
== END 2024-02-28 17:45 | disposition home or self-care (01) ==
PROVIDERS: PCP Internal Medicine; Visit Provider Internal Medicine
DX: Z00.00 Encounter for general adult medical examination without abnormal findings (principal)

== ENCOUNTER → 2024-02-28 17:16 | Outpatient (BNVA) | payer BC, SELFPAY | PROVIDERS: PCP Internal Medicine; Visit Provider Internal Medicine | DX: Z00.00 Encounter for general adult medical examination without abnormal findings (principal); J30.2 Other seasonal allergic rhinitis; G25.81 Restless legs syndrome; G43.909 Migraine, unspecified, not intractable, without status migrainosus; E66.811 Obesity, class 1; E78.5 Hyperlipidemia, unspecified | CPT/HCPCS: 96127 ==

== ENCOUNTER 2024-03-01 07:27 | Outpatient (REF) | payer BC, SELFPAY ==
[2024-03-01 09:00] LABS: Alanine Aminotransferase 13 U/L (0-31); Albumin Level 4.1 g/dL (3.5-5.0); Alkaline Phosphatase 57 U/L (39-117); Anion Gap 12 (12-20); Aspartate Amino Transferase 15 U/L (5-31); Bilirubin Total 0.3 mg/dL (0.0-1.0); Blood Urea Nitrogen 14 mg/dL (9-16); Calcium 9.2 mg/dL (8.4-10.2); Carbon Dioxide 26 mmol/L (22-29); Chloride 106 mmol/L (96-108); Cholesterol 218 mg/dL (<200); Estimated Glomerular Filt Rate > 60; Glucose Fasting 113 mg/dL (60-99); HDL Cholesterol 50 mg/dL (>40); LDL Cholesterol Calculated 148 mg/dL (<100); Potassium 4.3 mmol/L (3.3-5.1); Sodium 140 mmol/L (135-145); Total Protein 7.1 g/dL (6.5-8.0); Triglycerides 100 mg/dL (<150)
[2024-03-01 09:15] LABS: Vitamin D 25-OH Total 36.4 ng/mL (>30)
== END 2024-03-01 07:28 | disposition home or self-care (01) ==
LOC: HO.LAB 07:27
PROVIDERS: PCP Internal Medicine; Visit Provider Internal Medicine
DX: Z00.00 Encounter for general adult medical examination without abnormal findings (principal); E55.9 Vitamin D deficiency, unspecified; E78.5 Hyperlipidemia, unspecified
CPT/HCPCS: 36415; 80053; 80061; 82306

== ENCOUNTER 2024-12-17 16:10 | Outpatient (AMB) | payer BC, SELFPAY ==
--- OUTSIDE RECORDS SUMMARY | 2024-12-17 18:37 | XMS_ITS ---
Author Name [facility] Organization Unknown Care Team Organization Name Specialty Phone Email Start Date End Da te [facility] 02/14/2022 4
== END 2024-12-17 16:11 | disposition home or self-care (01) ==
LOC: HO.HMGAL 16:10
PROVIDERS: PCP Internal Medicine; Visit Provider Registered Nurse Emergency
DX: J30.89 Other allergic rhinitis (principal)
CPT/HCPCS: 95117; 95165

== ENCOUNTER 2025-01-14 16:22 | Outpatient (AMB) | payer BC, SELFPAY | END 2025-01-14 16:23 | disposition home or self-care (01) | LOC: HO.HMGAL 16:22 | PROVIDERS: PCP Internal Medicine; Visit Provider Registered Nurse Emergency | DX: J30.89 Other allergic rhinitis (principal) | CPT/HCPCS: 95117; 95165 ==

== ENCOUNTER 2025-02-09 14:40 | Outpatient (AMB) | payer BC, SELFPAY | END 2025-02-09 14:41 | disposition home or self-care (01) | LOC: HO.HMGAL 14:40 | PROVIDERS: PCP Internal Medicine; Visit Provider Registered Nurse Emergency | DX: J30.89 Other allergic rhinitis (principal) | CPT/HCPCS: 95117; 95165 ==

== ENCOUNTER 2025-02-18 16:24 | Outpatient (AMB) | payer BC, SELFPAY | END 2025-02-18 16:24 | disposition home or self-care (01) | LOC: HO.HMGAL 16:24 | PROVIDERS: PCP Internal Medicine; Visit Provider Registered Nurse Emergency | DX: J30.89 Other allergic rhinitis (principal) | CPT/HCPCS: 95117; 95165 ==

== ENCOUNTER 2025-03-18 16:21 | Outpatient (AMB) | payer BC, SELFPAY | END 2025-03-18 16:22 | disposition home or self-care (01) | LOC: HO.HMGAL 16:21 | PROVIDERS: PCP Internal Medicine; Visit Provider Registered Nurse Emergency | DX: J30.89 Other allergic rhinitis (principal) | CPT/HCPCS: 95117; 95165 ==

== ENCOUNTER 2025-03-23 17:16 | Outpatient (AMB) | payer BC, SELFPAY ==
--- NOTE | 2025-03-23 17:18 | A.OFFPC_ITS ---
Vital Signs 03/23/25 17:19 Height 5 ft 1.25 in Weight 182 lb BMI 34.1 BP 124/88 Respiration 14 Pulse 102 H Pulse Source Pulse Oximeter Temp 97.3 F Temp Source Temporal Artery Scan Pulse Oximetry (%) 98 Oxygen Delivery Method Room Air Intake Visit Reasons: physical Well Head Pumper Required: No Accompanied by: Self / Same As Patient Allergies Seasonal Allergies Allergy (Intermediate, Verified 03/23/25 17:43) Itching Medication List - Last Reconciled 03/23/25 by Bette Herndon MD loratadine-pseudoephedrine 10-240 mg ER (Claritin-D 24 Hour) 1 tab PO DAILY multivitamin 1 tab PO DAILY sumatriptan succinate 50 - 100 mg orally at onset of headache, may repeat in 2 hrs PRN; max 2 tabs per day or 4 tabs/week (may take with Ibuprofen) 30 days Tobacco use date assessed: 03/23/25 Dental Screening Dental Screen Date: 03/23/25 Did you have a dental visit in the last 12 months?: No Did you have a dental problem in the last 6 months where you did not have access to dental care?: No Was dental information given to patient?: Patient has dentist HPI HPI Comments History of Present Illness Details The patient is a 40-year-old female presenting for an annual physical exam. She has a history of seasonal allergies for which she receives weekly allergy shots and takes Claritin-D as needed. She also has a history of migraines, treated with sumatriptan as needed, and takes multivitamins. Her cholesterol has been gradually increasing each year. The patient's diet includes oatmeal and eggs, and discussions were had about their impact on cholesterol levels. Past surgical history is significant for an appendectomy. Her family history is notable for a father who had arthritis, osteoporosis, bladder cancer, and a heart attack. Regarding health maintenance, her last Pap smear was in 2022 and was negative for HPV, and she had a mammogram last year. She has received the flu shot for the current year. [facility] Medical History Encounter to establish care Syncope Chronic sinusitis Hearing loss Snoring Sleep disorder Surgical History History of appendectomy Family History Mother Arthritis Osteoporosis Father Bladder cancer Myocardial infarction Social History Housing: House Alcohol intake: never Patient Tobacco Use Status: Never used Tobacco e-Cigarette/Vaping Use: Never Used Second Hand Smoke Exposure: No service: No Current occupational status: employed Cognitive needs: No Hearing needs: No Vision needs: Yes Female Reproductive History Menstrual Age of Menarche: 12 Questionnaire PHQ-9 Over the last 2 weeks, how often have you been bothered by any of the following problems? 1. Little interest or pleasure in doing things: not at all 2. Feeling down, depressed, or hopeless: not at all 3. Trouble falling or staying asleep, or sleeping too much: not at all 4. Feeling tired or having little energy: several days 5. Poor appetite or overeating: not at all 6. Feeling bad about yourself - or that you are a failure or have let yourself or your family down: not at all 7. Trouble concentrating on things, such as reading the newspaper or watching television: not at all 8. Moving or speaking so slowly that other people could have noticed. Or the opposite - being so fidgety or restless that you have been moving around a lot more than usual: not at all 9. Thoughts that you would be better off or of hurting yourself in some way: not at all Total score: 1 Depression Screening Interpretation: Negative Depression Screening Done: Yes 56142 - PHQ-9 Billing: Yes Source: Developed by Drs. Gian Downs, Michelle Griggs, Jalen Taylor and colleagues, with an educational mark from [employer] Thrive Questionnaire Date Thrive assessed: 02/28/24 I am a: Patient What is your living situation today?: I have a steady place to live Within the past 12 months, did the food you bought not last and you didn't have the money to get more?: Never true Within the past 12 months, did you worry whether your food would run out before you got money to buy more?: Never true Do you have trouble paying for medicines?: No Do you have trouble getting transportation to medical appointments?: No Do you have trouble paying your heating and electricity bill?: No Do you have trouble taking care of your child, family member or friend?: No Do you have trouble with day-to-day activities such as bathing, preparing meals, shopping, managing finances, etc.?: No Are you currently unemployed and looking for a job?: No Are you interested in more education?: No Please select the resources that you would like help with: None Currently or been in a relationship where the following occur: No concerns reported THRIVE Score: 0 AUDIT C Alcohol Use Questionnaire (AUDIT-C) 1. How often do you have a drink containing alcohol?: Never Total Score: 0 Score Reviewed/Action Taken: No KATERINA-7 AMB Questionnaire KATERINA-7 Date KATERINA - 7 assessed: 02/28/24 Feeling nervous, anxious, or on edge: 0 = Not at all Not being able to stop or control worryin = Not at all Worrying too much about different things: 0 = Not at all Trouble relaxin = Not at all Being so restless that it is hard to sit still: 0 = Not at all Becoming easily annoyed or irritable: 0 = Not at all Feeling afraid as if something awful might happen: 0 = Not at all Total KATERINA-7 score (0-4 normal; 5-9 mild; 10-14 moderate; 15-21 severe): 0 Source: Developed by Drs. Gian Downs, Michelle Griggs, Jalen Taylor and colleagues, with an educational mark from [employer] KATERINA-7 Assessment Billing KATERINA-7 Assessment Tool: KATERINA-7 Assessment 40937 Review of Systems Const All systems reviewed & are unremarkable except as noted in HPI and below Card Denies chest pain at rest, Denies chest pain with activity, Denies edema, Denies irregular heart rhythm, Denies claudication, Denies dyspnea, Denies dyspnea on exertion, Denies orthopnea, Denies paroxysmal nocturnal dyspnea and Denies slow heart rate Resp Denies cough, Denies dyspnea and Denies dyspnea on exertion Musc Denies atrophy, Denies deformity and Denies limited range of motion Skin/Breast Denies bleeding lesions, Denies changing lesions and Denies rash Physical exam (Primary Care) Vital Signs: Last Vital Signs Temp 97.3 F 03/23/25 17:19 Pulse 102 H 03/23/25 17:19 Resp 14 03/23/25 17:19 BP 124/88 03/23/25 17:19 Pulse Ox 98 03/23/25 17:19 Oxygen Delivery Method Room Air 03/23/25 17:19 BMI result Body Mass Index 34.1 BMI Assessment/Plan discussion: High BMI High, discussed plan: lifestyle, weight reduction, dietary and physical activity Tobacco/Smoking Status: Tobacco use Status Tobacco use date assessed 03/23/25 03/23/25 17:24 Patient Tobacco Use Status Never used Tobacco 03/23/25 17:18 e-Cigarette/Vaping Use Never Used 03/23/25 17:18 PHQ-9: PHQ-9 Score PHQ-9: Total score 1 03/23/25 17:46 Depression Screening Interpretation: Negative Thrive Assessment: Date of Thrive Assessment Date Thrive assessed 02/28/24 03/23/25 17:18 Currently or been in a relationship where the following occur: No concerns reported HENMN Head: Yes normal to inspection, Yes normocephalic and Yes atraumatic Ears: external ears normal Eyes General: appearance normal, both eyes and all related structures Eyelids: Yes eyelids normal Conjunctivae: conjunctivae normal Neck Neck: Yes normal visual inspection and Yes supple Resp Effort & Inspection: normal respiratory effort Auscultation: clear to auscultation bilaterally Cardio Jugular venous distension: no JVD Rate: regular rate Rhythm: regular rhythm Heart sounds: S1 normal heart sound present and S2 normal heart sound present GI Inspection: Yes normal to inspection Palpation (GI): Soft to palpation and nontender Auscultation: normal bowel sounds Skin General skin exam: no rashes or lesions noted Neuro General: no focal motor deficits Extrem General: Yes full ROM Psych Appearance: grossly normal Coding Level of Care Code Est Pt Prev Care 40-64y(73132) Diagnoses Adult general medical exam Z00.00 Additional Codes KATERINA-7 Assessment Billing - KATERINA-7 Assessment Tool: KATERINA-7 Assessment 95675 ([id number]) PHQ-9 - 69517 - PHQ-9 Billing: Yes ([id number]) Time Spent (min) 30 Assessment & Plan Assessment & Plan (1) Adult general medical exam: Code(s): Z00.00 - Encounter for general adult medical examination without abnormal findings Category: Medical Plan Repeat in a year. Orders: Orders MM tomosynthesis screening BI Today Z12.31 - Encounter for screening mammogram for malignant neoplasm of breast Lipid Panel Today E78.5 - Hyperlipidemia, unspecified Comprehensive Epworth. Panel Fast Today Z00.00 - Encounter for general adult medical examination without abnormal findings
[2025-03-23 17:19] VITALS: BP 124/88; PULSE 102; RESP 14; TEMP 36.3; O2SAT 98; BMI 34.1
== END 2025-03-23 17:56 | disposition home or self-care (01) ==
LOC: HO.HMCH 17:17
PROVIDERS: PCP Internal Medicine; Visit Provider Internal Medicine
DX: Z00.00 Encounter for general adult medical examination without abnormal findings (principal)

== ENCOUNTER → 2025-03-23 17:16 | Outpatient (BNVA) | payer BC, SELFPAY | PROVIDERS: PCP Internal Medicine; Visit Provider Internal Medicine | DX: Z00.00 Encounter for general adult medical examination without abnormal findings (principal) | CPT/HCPCS: 96127 ==